=== PATIENT | female | born 1985 | race Two or more races ===

== ENCOUNTER 2017-12-30 11:33 | Emergency (ER) | payer OTHER ==
[~2017-12-30] VITALS: Ht 162.6 cm; Wt 72.6 kg
== END 2017-12-30 14:43 | disposition home or self-care (01) ==
LOC: ER 11:33
DX: N92.5 Other specified irregular menstruation (principal)

== ENCOUNTER → 2018-10-14 | Outpatient (CLI) | payer OTHER | END | disposition home or self-care (01) | LOC: PRENATAL 08:54 | DX: O28.3 Abnormal ultrasonic finding on antenatal screening of mother (principal); O09.522 Supervision of elderly multigravida, second trimester; O09.512 Supervision of elderly primigravida, second trimester ==

== ENCOUNTER → 2018-12-27 | Outpatient (CLI) | payer OTHER | END | disposition home or self-care (01) | LOC: PRENATAL 10:28 | DX: O26.843 Uterine size-date discrepancy, third trimester (principal); O09.523 Supervision of elderly multigravida, third trimester; O34.211 Maternal care for low transverse scar from previous cesarean delivery; O34.219 Maternal care for unspecified type scar from previous cesarean delivery; O28.3 Abnormal ultrasonic finding on antenatal screening of mother ==

== ENCOUNTER 2019-02-24 08:36 | Inpatient (IN) | payer OTHER ==
[~2019-02-24] VITALS: Ht 162.6 cm; Wt 2.7 kg
[2019-02-24] MEDS ORDERED: OBSTETRIX ONE1 EACH PO (08:52)
== END 2019-02-27 18:13 | disposition home or self-care (01) | DRG 785 ==
LOC: O/R 08:36 → OB/GYN 13:52 → LDR 17:41 → OB/GYN 02-27 18:13
PROVIDERS: ADMIT Obstetrics & Gynecology
PROC: 0UL70ZZ Occlusion of Bilateral Fallopian Tubes, Open Approach (ICD-10-PCS; 2019-02-24)
PROC: 4A1HXCZ Monitoring of Products of Conception, Cardiac Rate, External Approach (ICD-10-PCS; 2019-02-24)
PROC: 10D00Z1 Extraction of Products of Conception, Low, Open Approach (ICD-10-PCS; principal; 2019-02-24 09:00)
DX: O82 Encounter for cesarean delivery without indication (principal); Z3A.39 39 weeks gestation of pregnancy; Z37.0 Single live birth; Z30.2 Encounter for sterilization